=== PATIENT | male | born 1945 | race Hispanic/Latino ===

== ENCOUNTER 2019-08-29 09:20 | Outpatient (CLI) | payer MEDICARE ==
--- NOTE | 2019-08-29 10:08 | ULT ---
HEPATIC DOPPLER: HISTORY: Cirrhosis. COMPARISON: None. TECHNIQUE: Grayscale, color flow, Doppler imaging and spectral waveform analysis of the liver is performed. FINDINGS: Pancreas is obscured by bowel gas. Gallbladder is surgically absent. Common bile duct diameter is 0.9 cm. Hepatic parenchyma has a normal echotexture. No hepatic masses or intrahepatic biliary dilatation. Th e contour of the hepatic margin is maintained. Right hepatic lobe measures 13.7 cm. Spleen has a normal echotexture, measuring 12.9 cm in maximum dimension. Hepatic Doppler: This patency with appropriate directional flow in the left hepatic vein, right hepat ic vein, middle hepatic vein, right portal vein, left portal vein, main portal vein, splenic vein, splenic artery and hepatic artery. IMPRESSION: Normal hepatic Doppler. Transcribed Date/Time: 08/29/2019 10:20 AM
== END 2019-08-29 09:21 | disposition home or self-care (01) ==
LOC: BICULT 09:20
PROVIDERS: ATTEND Internal Medicine Gastroenterology
DX: K72.90 Hepatic failure, unspecified without coma (principal); K74.60 Unspecified cirrhosis of liver; I85.00 Esophageal varices without bleeding; R18.8 Other ascites
CPT/HCPCS: 76705

== ENCOUNTER 2019-09-14 14:59 | Emergency (ER) | payer MEDICARE ==
[2019-09-14] MEDS ORDERED: Lidocaine 1% PF 5 ML VIAL ONE (16:24)
--- NOTE | 2019-09-14 18:39 | CT ---
CT HEAD WITHOUT IV CONTRAST COMPARISON: None HISTORY: Patient slipped and fell hitting face on curb. Abrasions to face. Injury after fall. TECHNIQUE: Axial CT imaging at 5 mm intervals from vertex through skull base without contrast FINDINGS: Mild cerebral and cerebellar volume loss is present. Small low-density focus is seen within the left cerebellar hemisphere likely due to small remote infarction. There is no evidence of an acute infarction, hemorrhage, mass effect, or midline shift. The ventricular system is normal in size, shap e, and position. Minimal mucosal thickening is present in the left sphenoid sinus. There is mild thickening of the wal ls of the limited visualized right maxillary antrum. Mastoid air cells are clear. Osseous structures appear intact.There is incomplete visualization of a right anterior frontal scalp soft tissue swelling. IMPRESSION: 1. No acute intracranial abnormality demonstrated. 2. Scalp soft tissue hematoma right anterior frontal region incompletely imaged. 3. Small remote infarction left cerebellar hemisphere. 4. Cerebral volume loss.
== END 2019-09-14 18:35 | disposition home or self-care (01) ==
LOC: ERS 14:59
DX: S01.81XA Laceration without foreign body of other part of head, initial encounter (principal); S60.511A Abrasion of right hand, initial encounter; S80.212A Abrasion, left knee, initial encounter; S80.211A Abrasion, right knee, initial encounter; E11.9 Type 2 diabetes mellitus without complications; F17.210 Nicotine dependence, cigarettes, uncomplicated; W01.198A Fall on same level from slipping, tripping and stumbling with subsequent striking against other object, initial encounter
CPT/HCPCS: 12011; 70450; J2001